=== PATIENT | female | born 1970 | race Caucasian/White ===

== ENCOUNTER 2018-01-16 16:52 | Emergency (ER) | payer SELFPAY ==
[~2018-01-16] VITALS: Wt 68.0 kg
--- NOTE | ~2018-01-16 | EKG ---
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
[2018-01-16 18:05] LABS: BASO # 0.3 10*3/uL (0.0-0.1); BASO % 2.3 % (0.0-1.0); EOS # 0.2 10*3/uL (0.0-0.4); EOS % 1.8 % (1.0-4.0); HEMATOCRIT 46.6 % (37.0-47.0); HEMOGLOBIN 15.7 g/dl (12.0-16.0); LYMPH # 2.3 10*3/uL (1.3-4.4); LYMPH % 21.2 % (27.0-41.0); MEAN CELL VOLUME 89.3 fl (81.0-99.0); MEAN CORPUSCULAR HGB 30.1 pg (27.0-31.0); MEAN CORPUSCULAR HGB CONC 33.7 g/dl (33.0-37.0); MEAN PLATELET VOLUME 8.8 fl (9.6-12.3); MONO # 0.9 10*3/uL (0.1-1.0); MONO % 8.2 % (3.0-9.0); NEUT # 7.1 10*3/uL (2.3-7.9); PLATELET COUNT AUTOMATED 310 10*3/uL (130-400); RED BLOOD COUNT 5.22 10*6/uL (4.10-5.10); RED CELL DISTRI WIDTH 13.3 % (0-14.5)
[2018-01-16 18:21] LABS: ALBUMIN 3.9 gm/dl (3.1-4.5); ALKALINE PHOSPHATASE 150 U/L (45-117); BUN 11 mg/dl (7-24); CHLORIDE 106 mmol/L (98-107); CREATININE 0.64 mg/dL (0.55-1.02); POTASSIUM 3.6 mmol/L (3.5-5.1); SGOT/AST 18 IU/L (3-35); SGPT/ALT 31 U/L (12-78); SODIUM 139 mmol/L (136-145); TOTAL PROTEIN 8.1 gm/dL (6.4-8.2)
[2018-01-16 18:28] LABS: TROPONIN I < 0.015 ng/ml (<0.045)
[2018-01-16] MEDS ORDERED: PROAIR HFA8.5 GM INH (19:38)
[2018-01-16] MEDS ORDERED: AUGMENTIN 875875 MG PO (19:38)
[2018-01-16] MEDS ORDERED: PREDNISONE50 MG PO (19:38)
== END 2018-01-16 19:45 | disposition home or self-care (01) ==
LOC: ED
PROVIDERS: Nurse Practitioner Family
DX: J20.9 Acute bronchitis, unspecified (principal); F17.200 Nicotine dependence, unspecified, uncomplicated

== ENCOUNTER → 2020-01-23 | Outpatient (CLI) | payer OTHER ==
[~2020-01-23] MED LIST: AUGMENTIN 875875 MG PO; PREDNISONE50 MG PO; PROAIR HFA8.5 GM INH
== END | disposition home or self-care (01) ==
LOC: US 01-14 07:30
PROVIDERS: ATTEND Nurse Practitioner Primary Care
DX: Z12.31 Encounter for screening mammogram for malignant neoplasm of breast (principal); K76.0 Fatty (change of) liver, not elsewhere classified; R94.5 Abnormal results of liver function studies

== ENCOUNTER → 2020-05-05 | Outpatient (CLI) | payer OTHER | END | disposition home or self-care (01) | LOC: US 05-01 08:30 | PROVIDERS: ATTEND Nurse Practitioner Primary Care | DX: R10.31 Right lower quadrant pain (principal) ==

== ENCOUNTER 2020-11-12 18:37 | Observation (INO) | payer OTHER ==
[~2020-11-12] VITALS: Ht 162.5 cm; Wt 78.3 kg
[2020-11-12 18:44] VITALS: BP 135/85
[2020-11-12 19:18] LABS: BASO # 0.2 10*3/uL (0.0-0.1); BASO % 1.2 % (0.0-1.0); EOS # 0.2 10*3/uL (0.0-0.4); EOS % 1.2 % (1.0-4.0); HEMATOCRIT 38.9 % (37.0-47.0); LYMPH # 1.9 10*3/uL (1.3-4.4); LYMPH % 12.9 % (27.0-41.0); MEAN CELL VOLUME 87.2 fl (81.0-99.0); MEAN CORPUSCULAR HGB 29.6 pg (27.0-31.0); MEAN CORPUSCULAR HGB CONC 33.9 g/dl (33.0-37.0); MEAN PLATELET VOLUME 8.4 fl (9.6-12.3); MONO # 1.3 10*3/uL (0.1-1.0); NEUT # 11.1 10*3/uL (2.3-7.9); NEUT % 74.4 % (47.0-73.0); PLATELET COUNT AUTOMATED 354 10*3/uL (130-400); RED BLOOD COUNT 4.46 10*6/uL (4.10-5.10); RED CELL DISTRI WIDTH 12.6 % (0-14.5); WHITE BLOOD COUNT 14.9 10*3/uL (4.8-10.8)
[2020-11-12 19:26] LABS: BILIRUBIN Negative (Negative); BLOOD Negative (Negative); CLARITY Cloudy (Clear); COLOR Yellow (Yellow); GLUCOSE Negative (Negative); KETONE Negative (Negative); LEUKO ESTERASE Trace (Negative); NITRITE Negative (Negative); PH 5.5 (4.5-8.0); UROBILINOGEN 0.2 E.U./dl (0.0-1.0)
[2020-11-12 19:33] LABS: ALBUMIN 2.9 gm/dl (3.1-4.5); ALKALINE PHOSPHATASE 170 U/L (45-117); BUN 6 mg/dl (7-24); CHLORIDE 104 mmol/L (98-107); CREATININE 0.69 mg/dL (0.55-1.02); LIPASE 84 U/L (73-393); POTASSIUM 2.8 mmol/L (3.5-5.1); SGOT/AST 25 IU/L (3-35); SGPT/ALT 44 U/L (12-78); SODIUM 133 mmol/L (136-145); TOTAL PROTEIN 7.3 gm/dL (6.4-8.2)
[2020-11-12 19:39] LABS: BACTERIA 3+; MUCOUS 2+
[2020-11-12 20:36] VITALS: BP 134/84
[2020-11-12 23:44] VITALS: BP 132/80
[2020-11-13 00:15] VITALS: BP 122/74
[2020-11-13] MEDS ORDERED: OMEPRAZOLE40 MG PO (00:44)
[2020-11-13] MEDS ORDERED: ATORVASTATIN CA20 M1 PO (00:44)
[2020-11-13] MEDS ORDERED: ESCITALOPRAM OXA5 MG PO (00:44)
[2020-11-13 06:34] LABS: BASO # 0.1 10*3/uL (0.0-0.1); BASO % 1.1 % (0.0-1.0); EOS # 0.2 10*3/uL (0.0-0.4); EOS % 1.4 % (1.0-4.0); HEMATOCRIT 33.9 % (37.0-47.0); LYMPH # 1.8 10*3/uL (1.3-4.4); LYMPH % 15.9 % (27.0-41.0); MEAN CELL VOLUME 89.7 fl (81.0-99.0); MEAN CORPUSCULAR HGB 29.1 pg (27.0-31.0); MEAN CORPUSCULAR HGB CONC 32.4 g/dl (33.0-37.0); MEAN PLATELET VOLUME 8.9 fl (9.6-12.3); MONO # 1.1 10*3/uL (0.1-1.0); NEUT # 7.7 10*3/uL (2.3-7.9); PLATELET COUNT AUTOMATED 307 10*3/uL (130-400); RED BLOOD COUNT 3.78 10*6/uL (4.10-5.10)
[2020-11-13 07:04] LABS: ALBUMIN 2.3 gm/dl (3.1-4.5); BUN 5 mg/dl (7-24); CHLORIDE 108 mmol/L (98-107); CHOLESTEROL 135 mg/dL (<200); CREATININE 0.44 mg/dL (0.55-1.02); POTASSIUM 3.1 mmol/L (3.5-5.1); SGOT/AST 16 IU/L (3-35); SGPT/ALT 33 U/L (12-78); SODIUM 137 mmol/L (136-145)
[2020-11-13 07:12] LABS: ALKALINE PHOSPHATASE 138 U/L (45-117); FREE T4 0.92 ng/dl (0.76-1.46); LDL CHOLESTEROL 70 mg/dL (9-159); TRIGLYCERIDES 137 mg/dl (<150)
[2020-11-13 08:00] VITALS: BP 100/56
[2020-11-13 12:00] VITALS: BP 112/73
[2020-11-13 16:00] VITALS: BP 106/62
[2020-11-13 20:00] VITALS: BP 100/67
[2020-11-14] VITALS: BP 96/58
[2020-11-14 05:50] LABS: HEMATOCRIT 36.3 % (37.0-47.0); MEAN CELL VOLUME 89.6 fl (81.0-99.0); MEAN CORPUSCULAR HGB 29.4 pg (27.0-31.0); MEAN CORPUSCULAR HGB CONC 32.8 g/dl (33.0-37.0); MEAN PLATELET VOLUME 8.9 fl (9.6-12.3); PLATELET COUNT AUTOMATED 352 10*3/uL (130-400); RED BLOOD COUNT 4.05 10*6/uL (4.10-5.10); RED CELL DISTRI WIDTH 12.4 % (0-14.5); WHITE BLOOD COUNT 14.4 10*3/uL (4.8-10.8)
[2020-11-14 06:13] LABS: BUN 7 mg/dl (7-24); CHLORIDE 106 mmol/L (98-107); CREATININE 0.45 mg/dL (0.55-1.02); POTASSIUM 3.7 mmol/L (3.5-5.1); SODIUM 137 mmol/L (136-145)
[2020-11-14 06:27] LABS: PLATELET SUFFICIENCY NORMAL (NORMAL); TOTAL CELLS COUNTED 100 #CELLS
[2020-11-14 08:00] VITALS: BP 100/65
[2020-11-14] MEDS ORDERED: PREDNISONE10 MG PO (11:58)
[2020-11-14] MEDS ORDERED: ASACOL HD800 M1 PO (11:58)
[2020-11-14 12:00] VITALS: BP 102/67
== END 2020-11-14 14:00 | disposition home or self-care (01) ==
LOC: ED 18:37 → EDHOLD 23:06 → 5E 23:06 → EDHOLD 23:47 → 5E 23:52
PROVIDERS: Hospitalist; Internal Medicine; Physician Assistant; ADMIT Internal Medicine; ATTEND Internal Medicine
DX: A41.9 Sepsis, unspecified organism (principal); K52.9 Noninfective gastroenteritis and colitis, unspecified; K50.90 Crohn's disease, unspecified, without complications; M07.60 Enteropathic arthropathies, unspecified site; R00.0 Tachycardia, unspecified; D72.829 Elevated white blood cell count, unspecified; E87.2 Acidosis; E87.6 Hypokalemia; R79.82 Elevated C-reactive protein (CRP); R74.8 Abnormal levels of other serum enzymes; E78.5 Hyperlipidemia, unspecified; R51.9 Headache, unspecified; F41.9 Anxiety disorder, unspecified; K21.9 Gastro-esophageal reflux disease without esophagitis; F10.129 Alcohol abuse with intoxication, unspecified; F17.200 Nicotine dependence, unspecified, uncomplicated; M19.90 Unspecified osteoarthritis, unspecified site; Z98.891 History of uterine scar from previous surgery; Z79.01 Long term (current) use of anticoagulants; Z79.899 Other long term (current) drug therapy

== ENCOUNTER 2020-11-16 11:50 | Observation (INO) | payer OTHER ==
[~2020-11-16] VITALS: Ht 162.6 cm; Wt 73.5 kg
[~2020-11-16 11:50] MED LIST changes: +ASACOL HD800 M1 PO; +ATORVASTATIN CA20 M1 PO; +ESCITALOPRAM OXA5 MG PO; +OMEPRAZOLE40 MG PO; +PREDNISONE10 MG PO
[2020-11-16 11:56] VITALS: BP 127/80
[2020-11-16 12:36] LABS: MEAN CELL VOLUME 87.7 fl (81.0-99.0); MEAN CORPUSCULAR HGB 29.2 pg (27.0-31.0); MEAN CORPUSCULAR HGB CONC 33.3 g/dl (33.0-37.0); MEAN PLATELET VOLUME 8.8 fl (9.6-12.3); NUCLEATED RED BLOOD CELL 0.2 % (0.0-0.0); PLATELET COUNT AUTOMATED 430 10*3/uL (130-400); RED BLOOD COUNT 4.79 10*6/uL (4.10-5.10); RED CELL DISTRI WIDTH 12.6 % (0-14.5); WHITE BLOOD COUNT 12.1 10*3/uL (4.8-10.8)
[2020-11-16 12:52] LABS: ALBUMIN 2.9 gm/dl (3.1-4.5); ALKALINE PHOSPHATASE 145 U/L (45-117); BUN 9 mg/dl (7-24); CHLORIDE 100 mmol/L (98-107); LIPASE 161 U/L (73-393); PLATELET SUFFICIENCY HIGH (NORMAL); POLYCHROMASIA SLIGHT; POTASSIUM 2.5 mmol/L (3.5-5.1); SGOT/AST 44 IU/L (3-35); SGPT/ALT 58 U/L (12-78); SODIUM 136 mmol/L (136-145); TOTAL CELLS COUNTED 100 #CELLS; TOTAL PROTEIN 7.2 gm/dL (6.4-8.2)
[2020-11-16 13:48] VITALS: BP 114/69
[2020-11-16 16:18] VITALS: BP 118/77
[2020-11-16 19:45] VITALS: BP 106/60
[2020-11-16 21:34] VITALS: BP 112/71
[2020-11-16 21:35] VITALS: BP 124/76
[2020-11-17] VITALS: BP 124/76
[2020-11-17 06:22] LABS: HEMATOCRIT 38.6 % (37.0-47.0); MEAN CELL VOLUME 89.1 fl (81.0-99.0); MEAN CORPUSCULAR HGB 29.6 pg (27.0-31.0); MEAN CORPUSCULAR HGB CONC 33.2 g/dl (33.0-37.0); NUCLEATED RED BLOOD CELL 0.1 10*3/uL (0.0-0.0); NUCLEATED RED BLOOD CELL 0.5 % (0.0-0.0); PLATELET COUNT AUTOMATED 370 10*3/uL (130-400); RED BLOOD COUNT 4.33 10*6/uL (4.10-5.10); RED CELL DISTRI WIDTH 12.7 % (0-14.5); WHITE BLOOD COUNT 13.7 10*3/uL (4.8-10.8)
[2020-11-17 06:55] LABS: ALBUMIN 2.5 gm/dl (3.1-4.5); ALKALINE PHOSPHATASE 130 U/L (45-117); BUN 7 mg/dl (7-24); CHLORIDE 100 mmol/L (98-107); CREATININE 0.56 mg/dL (0.55-1.02); SGOT/AST 27 IU/L (3-35); SGPT/ALT 44 U/L (12-78); SODIUM 135 mmol/L (136-145); TOTAL PROTEIN 6.2 gm/dL (6.4-8.2)
[2020-11-17 07:04] LABS: ATYPICAL LYMPHS 1 % (0-0); BASOPHILS 1 % (0-1); PLATELET SUFFICIENCY NORMAL (NORMAL); POLYCHROMASIA SLIGHT; TOTAL CELLS COUNTED 100 #CELLS
[2020-11-17 08:00] VITALS: BP 101/67
[2020-11-17 12:00] VITALS: BP 100/56
[2020-11-17 16:00] VITALS: BP 91/50
[2020-11-17 20:00] VITALS: BP 102/55
[2020-11-18] VITALS: BP 90/54
[2020-11-18 08:00] VITALS: BP 104/81
[2020-11-18 08:29] LABS: HEMATOCRIT 36.9 % (37.0-47.0); MEAN CELL VOLUME 87.4 fl (81.0-99.0); MEAN CORPUSCULAR HGB 29.6 pg (27.0-31.0); MEAN CORPUSCULAR HGB CONC 33.9 g/dl (33.0-37.0); MEAN PLATELET VOLUME 8.7 fl (9.6-12.3); PLATELET COUNT AUTOMATED 360 10*3/uL (130-400); RED BLOOD COUNT 4.22 10*6/uL (4.10-5.10); RED CELL DISTRI WIDTH 12.7 % (0-14.5); WHITE BLOOD COUNT 13.3 10*3/uL (4.8-10.8)
[2020-11-18 08:54] LABS: BUN 6 mg/dl (7-24); CHLORIDE 105 mmol/L (98-107); CREATININE 0.53 mg/dL (0.55-1.02); POTASSIUM 3.1 mmol/L (3.5-5.1); SODIUM 139 mmol/L (136-145)
[2020-11-18 09:00] LABS: ATYPICAL LYMPHS 1 % (0-0); POLYCHROMASIA SLIGHT; TOTAL CELLS COUNTED 100 #CELLS
[2020-11-18 09:01] LABS: PLATELET SUFFICIENCY NORMAL (NORMAL)
[2020-11-18 12:00] VITALS: BP 102/55
[2020-11-18 12:34] LABS: BUN 5 mg/dl (7-24); CHLORIDE 105 mmol/L (98-107); CREATININE 0.66 mg/dL (0.55-1.02); POTASSIUM 2.9 mmol/L (3.5-5.1); SODIUM 138 mmol/L (136-145)
[2020-11-18 16:00] VITALS: BP 103/63
[2020-11-18 20:00] VITALS: BP 111/74
[2020-11-19] VITALS: BP 133/74
[2020-11-19 04:43] LABS: HEMATOCRIT 36.1 % (37.0-47.0); MEAN CORPUSCULAR HGB 29.3 pg (27.0-31.0); MEAN CORPUSCULAR HGB CONC 33.2 g/dl (33.0-37.0); MEAN PLATELET VOLUME 8.8 fl (9.6-12.3); PLATELET COUNT AUTOMATED 416 10*3/uL (130-400); RED CELL DISTRI WIDTH 12.7 % (0-14.5); WHITE BLOOD COUNT 10.9 10*3/uL (4.8-10.8)
[2020-11-19 05:14] LABS: ATYPICAL LYMPHS 2 % (0-0); BURR CELLS FEW; PLATELET SUFFICIENCY HIGH (NORMAL); TOTAL CELLS COUNTED 100 #CELLS
[2020-11-19 08:00] VITALS: BP 131/89
[2020-11-19] MEDS ORDERED: PREDNISONE10 MG PO (11:31)
[2020-11-19] MEDS ORDERED: ASACOL HD800 M1 PO (11:31)
[2020-11-19 12:00] VITALS: BP 108/66
== END 2020-11-19 12:50 | disposition home or self-care (01) ==
LOC: ED 11:50 → EDHOLD 14:34 → 4E 14:34 → EDHOLD 15:22 → 4E 19:55 → EDHOLD 19:55 → 4E 11-19 12:50
PROVIDERS: Emergency Medicine; Registered Nurse; ADMIT Internal Medicine; ATTEND Internal Medicine
DX: K50.90 Crohn's disease, unspecified, without complications (principal); E87.6 Hypokalemia; K21.9 Gastro-esophageal reflux disease without esophagitis; D72.829 Elevated white blood cell count, unspecified; F10.10 Alcohol abuse, uncomplicated; R00.0 Tachycardia, unspecified; R74.01 Elevation of levels of liver transaminase levels; E87.2 Acidosis; F41.9 Anxiety disorder, unspecified; E44.0 Moderate protein-calorie malnutrition; D47.3 Essential (hemorrhagic) thrombocythemia; F17.200 Nicotine dependence, unspecified, uncomplicated; Z79.899 Other long term (current) drug therapy; Z79.01 Long term (current) use of anticoagulants

== ENCOUNTER 2023-06-25 17:13 | Emergency (ER) | payer OTHER ==
[~2023-06-25] VITALS: Ht 160 cm; Wt 79.4 kg
[2023-06-25] MEDS ORDERED: MORPHINE Sulfate 2 MG/ML SYR IV ONE (17:35)
[2023-06-25] MEDS ORDERED: SODIUM CHLORIDE 0.9% 1,000 ML IV ONE (17:35)
[2023-06-25] MEDS ORDERED: methylPREDNISolone sod succ 125 MG VIAL IV ONE (17:35)
[2023-06-25] MEDS ORDERED: Ondansetron Hydrochloride 4 MG/2 ML VIAL IV ONE (17:35)
[2023-06-25] MEDS ORDERED: IOHEXOL 300 MG/ML 100 ML VIAL IV ONE (17:40)
[2023-06-25 17:51] LABS: BASO # 0.2 10*3/uL (0.0-0.1); EOS % 0.4 % (1.0-4.0); HEMATOCRIT 45.5 % (37.0-47.0); LYMPH # 0.8 10*3/uL (1.3-4.4); LYMPH % 9.3 % (27.0-41.0); MEAN CELL VOLUME 90.1 fl (81.0-99.0); MEAN CORPUSCULAR HGB 29.9 pg (27.0-31.0); MEAN CORPUSCULAR HGB CONC 33.2 g/dl (33.0-37.0); MEAN PLATELET VOLUME 8.4 fl (9.6-12.3); MONO # 0.8 10*3/uL (0.1-1.0); MONO % 9.4 % (3.0-9.0); NEUT # 6.3 10*3/uL (2.3-7.9); NEUT % 78.2 % (47.0-73.0); PLATELET COUNT AUTOMATED 245 10*3/uL (130-400); RED BLOOD COUNT 5.05 10*6/uL (4.10-5.10); RED CELL DISTRI WIDTH 13.2 % (0-14.5); WHITE BLOOD COUNT 8.1 10*3/uL (4.8-10.8)
[2023-06-25 18:15] LABS: ALKALINE PHOSPHATASE 123 U/L (46-116); BUN 5 mg/dl (9-23); CHLORIDE 103 mmol/L (98-107); POTASSIUM 3.7 mmol/L (3.4-5.1); SGPT/ALT 98 U/L (5-49); TOTAL PROTEIN 7.4 gm/dL (6.0-8.0)
[2023-06-25] MEDS ORDERED: PREDNISONE10 MG PO (19:51)
== END 2023-06-25 19:55 | disposition home or self-care (01) ==
LOC: ED 17:13
PROVIDERS: Physician Assistant Medical
DX: K50.90 Crohn's disease, unspecified, without complications (principal); R74.01 Elevation of levels of liver transaminase levels; F17.200 Nicotine dependence, unspecified, uncomplicated; Z88.1 Allergy status to other antibiotic agents; Z79.899 Other long term (current) drug therapy; Z98.890 Other specified postprocedural states